=== PATIENT | female | born 1995 | race Hispanic/Latino ===

== ENCOUNTER 2025-02-27 19:01 | Inpatient (IN) | payer MEDICAID, OTHER ==
[~2025-02-27 19:01] MED LIST: Bupivacaine/Epinephrine 0.25% 30 ML VIAL ONE
[2025-02-27 19:24] VITALS: BMI 32.5
[2025-02-27] MEDS ORDERED: Methylergonovine 0.2 MG/ML VIAL IM PRN (19:34)
[2025-02-27] MEDS ORDERED: hydrALAZINE 20 MG/ML VIAL SLOW IVP PRN ×2 (19:34→23:23)
[2025-02-27] MEDS ORDERED: Carboprost 250 MCG/ML AMP IM PRN (19:34)
[2025-02-27] MEDS ORDERED: Diphenoxylate HCl/Atropine Tablet PO PRN (19:34)
[2025-02-27] MEDS ORDERED: Lidocaine 1% (PF) 30 ML VIAL SC PRN (19:34)
[2025-02-27] MEDS ORDERED: Ondansetron PF 4 MG/2 ML Vial IVP PRN ×2 (19:34→22:39)
[2025-02-27] MEDS ORDERED: Tranexamic Acid 1,000 MG/10 ML VIAL IVP PRN (19:34)
[2025-02-27] MEDS ORDERED: Oxytocin 30 units/NS 500 ML 500 ML IV SCH ×2 (19:45)
[2025-02-27 20:37] LABS: Hematocrit 37.0 % (34.9-44.5); Hemoglobin 11.9 g/dL (12.0-15.5); Mean Corpuscular Hemoglobin 29.9 pg (27.0-33.0); Mean Corpuscular Volume 93.0 fL (81.6-98.3); Platelet Count 153 10x3/uL (150-450); Red Blood Cell (RBC) Count 3.98 10x6/uL (3.90-5.03); White Blood Cell (WBC) Count 10.80 10x3/uL (3.5-10.5)
[2025-02-27] MEDS: fentaNYL/Ropivacaine Epidural 100 ML ONE (21:15)
[2025-02-27 21:54] LABS: Syphilis Antibody Index 0.02 S/CO (<1.00 Non-Reactive)
[2025-02-27 21:56] LABS: Hep B Surf Ag - L&D Non-Reactive S/CO (NonReactive)
[2025-02-27] MEDS ORDERED: diphenhydrAMINE 50 MG/ML VIAL IVP PRN (22:39)
[2025-02-27] MEDS ORDERED: Communication Order-Pharmacy FS SCH (22:45)
[2025-02-27] MEDS ORDERED: fentaNYL 2 mcg/Ropivacaine 0.2% Epidural 100 ML CADD EPIDURAL SCH (22:45)
[2025-02-27] MEDS ORDERED: Bisacodyl 10 MG SUPP PR PRN (23:23)
[2025-02-27] MEDS ORDERED: Benzocaine-Menthol 82.5 ML CAN TOP PRN (23:23)
[2025-02-27] MEDS ORDERED: Milk Of Magnesia 30 ML UDCUP PO PRN (23:23)
[2025-02-28] MEDS ORDERED: Methylergonovine 0.2 MG TAB PO PRN (01:22)
[2025-02-28] MEDS ORDERED: Oxytocin 30 units/NS 500 ML 500 ML IV SCH (01:22)
[2025-02-28] MEDS ORDERED: Bisacodyl 10 MG SUPP PR PRN (01:22)
[2025-02-28] MEDS ORDERED: hydrALAZINE 20 MG/ML VIAL SLOW IVP PRN (01:22)
[2025-02-28] MEDS ORDERED: Milk Of Magnesia 30 ML UDCUP PO PRN (01:22)
[2025-02-28] MEDS ORDERED: Preparation H Ointment 28 GM TUBE PR PRN (01:22)
[2025-02-28] MEDS ORDERED: Methylergonovine 0.2 MG/ML VIAL IM PRN (01:22)
[2025-02-28] MEDS ORDERED: diphenhydrAMINE 25 MG CAP PO PRN (01:22)
[2025-02-28] MEDS ORDERED: Lanolin Ointment 7 GM TUBE TOP PRN (01:22)
[2025-02-28] MEDS: Acetaminophen 325 MG TAB PO PRN (02:20)
[2025-02-28] MEDS ORDERED: Ibuprofen 800 MG TAB PO SCH (06:00)
[2025-02-28] MEDS ORDERED: Ferrous Sulfate 325 MG TAB PO SCH (08:00)
[2025-02-28] MEDS: Ferrous Sulfate 325 MG TAB PO SCH (10:59)
[2025-02-28] MEDS: Ibuprofen 800 MG TAB PO PRN (14:21)
[2025-03-01 07:48] VITALS: BP 116/57; TEMP 98.3
== END 2025-03-01 13:35 | disposition home or self-care (01) | DRG 806 ==
LOC: CSHLD/OP 19:01 → CSHLD 20:12 → CSHPP 02-28 01:40
PROVIDERS: ADMIT Obstetrics & Gynecology; ATTEND Obstetrics & Gynecology
PROC: 10E0XZZ Delivery of Products of Conception, External Approach (ICD-10-PCS; principal; 2025-02-27)
PROC: 10907ZC Drainage of Amniotic Fluid, Therapeutic from Products of Conception, Via Natural or Artificial Opening (ICD-10-PCS; 2025-02-27)
PROC: 4A1HXCZ Monitoring of Products of Conception, Cardiac Rate, External Approach (ICD-10-PCS; 2025-02-27)
PROC: 3E0R3BZ Introduction of Anesthetic Agent into Spinal Canal, Percutaneous Approach (ICD-10-PCS; 2025-02-27)
PROC: 0UQGXZZ Repair Vagina, External Approach (ICD-10-PCS; 2025-02-27)
PROC: 3E0334Z Introduction of Serum, Toxoid and Vaccine into Peripheral Vein, Percutaneous Approach (ICD-10-PCS; 2025-02-28)
DX: O24.420 Gestational diabetes mellitus in childbirth, diet controlled (principal); O71.4 Obstetric high vaginal laceration alone; Z37.0 Single live birth; O99.02 Anemia complicating childbirth; Z3A.38 38 weeks gestation of pregnancy; O71.82 Other specified trauma to perineum and vulva; O99.214 Obesity complicating childbirth; E66.813 Obesity, class 3; O26.893 Other specified pregnancy related conditions, third trimester; O62.3 Precipitate labor; Z67.41 Type O blood, Rh negative; Z90.49 Acquired absence of other specified parts of digestive tract
CPT/HCPCS: 36415; 51702; 82951; 85027; 85461; 86780; 86850; 86870; 86900; 86901; 87340; 90384; 96372; 99285; J2590